=== PATIENT | male | born 1940 | race Caucasian/White ===

== ENCOUNTER 2024-05-11 11:00 | Outpatient (CLI) | payer MEDICARE, BC | END 2024-05-11 11:01 | disposition home or self-care (01) | LOC: PET 11:00 | PROVIDERS: ATTEND Internal Medicine Hematology & Oncology | DX: C43.39 Malignant melanoma of other parts of face (principal); R59.0 Localized enlarged lymph nodes; R91.8 Other nonspecific abnormal finding of lung field | CPT/HCPCS: 78816; A9552 ==

== ENCOUNTER 2024-12-31 10:15 | Outpatient (CLI) | payer MEDICARE, BC | END 2024-12-31 10:16 | disposition home or self-care (01) | LOC: PET 10:15 | PROVIDERS: ATTEND Internal Medicine Hematology & Oncology | DX: C43.39 Malignant melanoma of other parts of face (principal) | CPT/HCPCS: 78815; A9552 ==

== ENCOUNTER 2025-06-22 09:30 | Outpatient (CLI) | payer MEDICARE, BC | END 2025-06-22 09:31 | disposition home or self-care (01) | LOC: PET 09:30 | PROVIDERS: ATTEND Internal Medicine Hematology & Oncology | DX: C43.39 Malignant melanoma of other parts of face (principal); M43.17 Spondylolisthesis, lumbosacral region; K20.90 Esophagitis, unspecified without bleeding; J02.9 Acute pharyngitis, unspecified | CPT/HCPCS: 78815; A9552 ==